=== PATIENT | female | born 1990 | race Caucasian/White ===

== ENCOUNTER 2017-03-02 17:41 | Emergency (ER) | payer MEDICAID ==
--- NOTE | 2017-03-02 18:13 | ED Physician Chart ---
ED Chief Complaint/HPI - Patient Information Date Seen:: 03/02/17 Time Seen:: 18:00 Chief Complaint:: Suprapubic pain since November 2016 History of Present Illness:: Pt is primarily Ethiopian speaking. Interpretation is provided by my nurse Kiel Chaparroa. Pt has had intermittent, primarily localized suprapubic burning sensation for at least 2 months. Pt has been followed at a clinic in [place] where she lives. Pt is currently on antibiotic therapy with Flagyl and Cipro. No known precipitating, aggravating or relieving factors. No dysuria now. No urgency or frequency. No fever. No N/V/D. LNMP 02/22/17. No vaginal bleeding or discharge. Pt has not had any antipyretic or analgesic today. Allergies:: Allergies Allergy/AdvReac Type Severity Reaction Status Date / Time No Known Allergies Allergy Verified 03/02/17 17:56 Vitals:: see Nurse Note Historian:: Patient Family MD/PCP:: unknown. LMP:: 02/22/17 Review:: Nurse's Note Reviewed ED Review of Systems - Review of Systems General/Constitutional: No fever, No chills, Weight loss (? 14 lbs last 2 months.), No weakness, No edema, No loss of appetite Skin: No skin lesions, No rash, No bruising Head: No headache, No light-headedness Eyes: No loss of vision, No pain, No diplopia ENT: No earache, No nasal drainage, No sore throat, No tinnitus Neck: No neck pain, No swelling, No thyromegaly, No stiffness, No mass noted Cardio Vascular: No chest pain, No palpitations, No edema Pulmonary: No SOB, No cough, No wheezing GI: No nausea, No vomiting, No diarrhea, Pain (suprapubic burning pain, see HPI. ), No melena, No hematochezia, No constipation, No hematemesis G/U: No dysuria, No frequency, No hematuria Personal Investment Adviser: No vaginal discharge, No abnormal vaginal bleed Musculoskeletal: No bone or joint pain, No back pain, No muscle pain Endocrine: No polyuria, No polydipsia Psychiatric: No prior psych history Hematopoietic: No bruising, No lymphadenopathy Allergic/Immuno: No urticaria, No angioedema Neurological: No syncope, No focal symptoms, No weakness, No paresthesia, No headache, No dizziness, No confusion ED Past Medical History - Past Medical History Past Medical History: No significant medical hx Family History: Cancer (PGM) Social History: Non Smoker, No Alcohol, No Drug Use, , Other (lives with her .) Employment:: Unemployed. Surgical History: None Psychiatricy History: None Medication: Reviewed Family Medical History - Family Member Mother History Unknown: Yes ED Physical Exam - Physical Examination General/Constitutional: Awake, Well-developed, well-nourished, Alert, No distress, GCS 15, Non-toxic appearing, Ambulatory Other Gen/Cons comments:: Breathes comfortably, speaks clearly, interacts normally, and ambulates without difficulty. Head: Atraumatic Eyes: Lids, conjuctiva normal, PERRL, EOMI Skin: Nl inspection, No rash, No skin lesions, No ecchymosis, Well hydrated, No lymphadenopathy ENMT: External ears, nose nl, Nasal exam nl, Oropharynx nl Neck: Nontender, Full ROM w/o pain, No nuchal rigidity, No mass, No stridor Respiratory: Nl effort/Exclusion, Clear to Auscultation, No Wheeze/Rhonchi/Rales Cardio Vascular: RRR, No murmur, gallop, rubs GI: No organomegaly, No hernia, Normal BS's, Nondistended, No mass/bruits, No McBurney tenderness Other GI comments:: Vague discomfort at suprapubic region. Abdomen is soft. No R/G. : No CVA tenderness Other comments:: Pelvic exam: deferred per pt's request as she now feels much better. Pt was previously examined by her PCP already for same condition. Extremities: No tenderness or effusion, Full ROM, No edema Neuro/Psych: Alert/oriented (oriented x 3), Mood normal, Normal gait, No focal deficits ED Septic Shock - . Is Septic Shock (SBP<90, OR Lactate>4 mmol\L) present?: No ED Reassessment (Disposition) - Reassessment Reassessment:: 1924 Pt feels much better. Lab results just became available. Lab findings have been reviewed with pt. Management plan has been discussed with pt. Pt requests to go home now. Aftercare instructions have been given. Interpretation is provided by my nurse Mr. Vazquez Bustamante. Reassessment Condition:: Improved - Diagnosis Diagnosis:: Probable interstitial cystitis. Stable and much improved. Mild hypokalemia. Stable. - Aftercare/Follow up Instructions Aftercare/Follow-Up Instructions:: Refer to Discharge Instructions Notes:: Continue present care and antibiotic therapy as prescribed by her PCP. Increase oral fluid. Increase oral intake of potassium rich foodstuffs such as banana, etc. May take Motrin 200 mg tab 3-4 tabs po q8h prn pain, not to take first dose at least 6 hours after Toradol was given here. F/U with Dr. Humphrey or her PCP as directed in 1-2 days for recheck with repeat lab study: BMP. Return to ER immediately if condition worsens or if any further questions/problems. Medication Prescribed:: None - Patient Disposition Discharge/Transfer:: Home Time:: 19:30 Condition at Disposition:: Stable, Improved
[2017-03-02 18:33] LABS: % EOSINOPHILS 2.1 % (0.0-5.0); % LYMPHOCYTES 28.4 % (20.0-50.0); % NEUTROPHILS 62.5 % (40.0-80.0); HEMATOCRIT 37.3 % (41.0-60); HEMOGLOBIN 12.6 gm/dL (12-16); MEAN CELL VOLUME 89.1 fl (81-100); MEAN CORPUSCULAR HEMOGLOBIN 30.1 pg (27.0-31.0); MEAN CORPUSCULAR HGB CONC 33.8 pg (28.0-36.0); MEAN PLATELET VOLUME 8.1 fl; NEUTROPHILE ABSOLUTE 4.1 Th/cmm (1.8-8.0); PLATELET COUNT 252 Th/cmm (150-400); RED BLOOD COUNT 4.19 Mil/cmm (3.80-5.10); RED CELL DISTRIBUTION WIDTH 13.1 % (11.5-20.0); WHITE BLOOD COUNT 6.5 Th/cmm (4.8-10.8)
[2017-03-02 18:38] LABS: URINE BILIRUBIN NEGATIVE (NEGATIVE); URINE BLOOD TRACE (NEGATIVE); URINE GLUCOSE (UA) NEGATIVE (NEGATIVE); URINE KETONE 40 mg/dL (NEGATIVE); URINE PH 5.5 (4.6 - 8.0); URINE PROTEIN NEGATIVE (NEGATIVE); URINE UROBILINOGEN 0.2 E.U./dL (0.2 - 1.0)
[2017-03-02 18:43] LABS: URINE COLOR YELLOW
[2017-03-02 18:44] LABS: URINE BACTERIA OCCASIONAL /hpf (NONE SEEN); URINE EPITHELIAL CELLS RARE /lpf (FEW); URINE RBC 0-2 /hpf (0-5)
[2017-03-02 18:49] LABS: ANION GAP 9.5 (7.0-16.0); BUN - UREA NITROGEN 7 mg/dL (7-25); CALCIUM SERUM 9.1 mg/dL (8.6-10.3); CARBON DIOXIDE 25.9 mEq/L (21.0-31.0); CHLORIDE 104 mEq/L (98-107); GLUCOSE 97 mg/dL (70-105); POTASSIUM SERUM 3.4 mEq/L (3.5-5.1); SODIUM SERUM 136 mEq/L (136-145)
[2017-03-02] MEDS ORDERED: Potassium Chloride 20 mEq ER Tab PO ONE ×2 (19:19→19:28)
[2017-03-02 19:35] LABS: CREATININE - SERUM 0.7 mg/dL (0.6-1.2)
== END 2017-03-02 19:45 | disposition home or self-care (01) ==
LOC: ER 17:41
DX: N30.10 Interstitial cystitis (chronic) without hematuria (principal)
CPT/HCPCS: 99284; 96372; 36415; 85025; 81001; 81025; 80048; J1885; Z7502